=== PATIENT | female | born 1990 | race Caucasian/White ===

== ENCOUNTER 2018-11-05 12:50 | Emergency (ER) | payer OTHER ==
[~2018-11-05] VITALS: Ht 162.6 cm; Wt 90.0 kg
[~2018-11-05 12:50] MED LIST: BIRTH CONTROL TAB; CIPRO500 MG OR; FLEXERIL OR; LORTAB 5 OR; NAPROXEN500 MG OR; PRENATAL1 TA1 PO; PYRIDIUM200 MG OR; ULTRAM50 M1 OR
[2018-11-05] MEDS ORDERED: OMEPRAZOLE10 MG PO (13:11)
[2018-11-05 14:17] LABS: HEMOGLOBIN 13.5 g/dl (12.0-16.0); IMMATURE GRANULOCYTES 0.3 % (0.0-5.0); MEAN CELL VOLUME 94.2 fL CALC (80.0-100.0); MEAN CORPUSCULAR HGB 31.4 pG CALC (26.0-32.0); MEAN CORPUSCULAR HGB CONC 33.3 g/L CALC (32.0-36.0); NEUT# 12.31 thou/uL (2.00-7.15); RED BLOOD COUNT 4.3 mill/uL (4.20-5.60); RED CELL DISTRI WIDTH 11.9 % (11.5-15.5)
[2018-11-05 14:20] LABS: HEMATOCRIT 40.5 % (37.0-47.0)
[2018-11-05 14:21] LABS: URINE BILIRUBIN - DIPSTICK NEGATIVE (NEGATIVE); URINE BLOOD DIPSTICK NEGATIVE (NEGATIVE); URINE COLOR YELLOW; URINE GLUCOSE - DIPSTICK NEGATIVE (NEGATIVE); URINE KETONE NEGATIVE (NEGATIVE); URINE LEUK ESTERASE TRACE (NEGATIVE); URINE NITRITE - DIPSTICK NEGATIVE (Negative); URINE PROTEIN - DIPSTICK NEGATIVE (NEG-TRACE); URINE SPECIFIC GRAVITY 1.025; URINE UROBILINOGEN - DIPSTICK 0.2 E.U./dL (0.2)
[2018-11-05 14:30] LABS: ANION GAP 14 (6-22 (CALC)); BILIRUBIN, TOTAL 0.9 mg/dL (0.0-1.4); BUN 8 mg/dL (7-17); BUN/CREATININE RATIO 16 (12-20 (CALC)); CARBON DIOXIDE 25 mmol/l (22-30); CHLORIDE 104 mmol/l (95-108); CREATININE 0.5 mg/dL (0.5-1.0); GFR > 60 ML/MIN (>=60 (CALC)); GFR FOR AFR.AMER. > 60 ML/MIN (>=60 (CALC)); LIPASE 71 u/l (23-300); POTASSIUM 4.5 mmol/l (3.5-5.1); SGOT/AST 25 u/l (14-36); SODIUM 138 mmol/l (137-146); TOTAL PROTEIN 6.9 g/dL (6.3-8.2)
[2018-11-05 14:33] LABS: ALBUMIN 4.2 g/dL (3.2-5.0); ALKALINE PHOSPHATASE 75 u/l (38-126)
[2018-11-05] MEDS ORDERED: EPIPEN 2-P0.3 MG/0.3 IM (19:17)
[2018-11-05] MEDS ORDERED: PREDNISONE50 MG PO (19:17)
[2018-11-05] MEDS ORDERED: ULTRAM50 M1 PO (20:10)
[2018-11-05 20:45] VITALS: BP 117/73
== END 2018-11-05 20:45 | disposition home or self-care (01) | DRG 392 ==
LOC: ED 12:50
PROVIDERS: Family Medicine
DX: R10.84 Generalized abdominal pain (principal); M79.10 Myalgia, unspecified site; K21.9 Gastro-esophageal reflux disease without esophagitis; L50.0 Allergic urticaria; D72.829 Elevated white blood cell count, unspecified; T50.905A Adverse effect of unspecified drugs, medicaments and biological substances, initial encounter
CPT/HCPCS: Q9967

== ENCOUNTER 2021-05-25 14:06 | Emergency (ER) | payer OTHER ==
[~2021-05-25] VITALS: Ht 162.6 cm; Wt 90.0 kg
[~2021-05-25 14:06] MED LIST changes: +EPIPEN 2-P0.3 MG/0.3 IM; +OMEPRAZOLE10 MG PO; +PREDNISONE50 MG PO; +ULTRAM50 M1 PO
[2021-05-25] MEDS ORDERED: HYDROCO/APAP1 T10 PO (16:05)
[2021-05-25] MEDS ORDERED: ZOFRAN4 MG/TAB PO (16:06)
[2021-05-25] MEDS ORDERED: ONDANSETRON4 MG PO (16:15)
[2021-05-25 16:25] VITALS: BP 112/79
== END 2021-05-25 16:25 | disposition home or self-care (01) | DRG 948 ==
LOC: ED 14:06
DX: G89.18 Other acute postprocedural pain (principal); K21.9 Gastro-esophageal reflux disease without esophagitis; Z98.890 Other specified postprocedural states

== ENCOUNTER 2022-01-02 18:27 | Emergency (ER) | payer OTHER ==
[~2022-01-02] VITALS: Ht 162.6 cm; Wt 90.6 kg
[~2022-01-02 18:27] MED LIST changes: +HYDROCO/APAP1 T10 PO; +ONDANSETRON4 MG PO; +ZOFRAN4 MG/TAB PO
[2022-01-02 19:44] VITALS: BP 116/77
[2022-01-02 20:06] LABS: HEMATOCRIT 42.1 % (37.0-47.0); HEMOGLOBIN 13.7 g/dl (12.0-16.0); IMMATURE GRANULOCYTES 0.2 % (0.0-5.0); MEAN CELL VOLUME 95.9 fL CALC (80.0-100.0); MEAN CORPUSCULAR HGB 31.2 pG CALC (26.0-32.0); MEAN CORPUSCULAR HGB CONC 32.5 g/dL CAL (32.0-36.0); NEUT# 9.77 thou/uL (2.00-7.15); RED BLOOD COUNT 4.39 mill/uL (4.20-5.60); RED CELL DISTRI WIDTH 11.6 % (11.5-15.5)
[2022-01-02 20:28] LABS: ALBUMIN 4.1 g/dL (3.2-5.0); ALKALINE PHOSPHATASE 78 u/l (38-126); AMYLASE 61 u/l (30-110); ANION GAP 11 (6-22 (CALC)); BUN 13 mg/dL (7-17); BUN/CREATININE RATIO 17 (12-20 (CALC)); CARBON DIOXIDE 28 mmol/l (22-30); CHLORIDE 101 mmol/l (95-108); CREATININE 0.8 mg/dL (0.5-1.0); GFR > 60 ML/MIN (>=60 (CALC)); GFR FOR AFR.AMER. > 60 ML/MIN (>=60 (CALC)); LIPASE 115 u/l (23-300); POTASSIUM 4.7 mmol/l (3.5-5.1); SGOT/AST 16 u/l (14-36); SODIUM 136 mmol/l (137-146)
[2022-01-02 20:30] LABS: BILIRUBIN, TOTAL 0.3 mg/dL (0.0-1.4)
[2022-01-02 20:39] LABS: MYOGLOBIN 19 ng/mL (0 - 62)
[2022-01-02 20:50] LABS: ACT PARTIAL THROMBO TIME 25.4 SECONDS (20.0-32.5); INTERNATIONAL NORMALIZED RATIO 0.9 RATIO (0.7-1.3); PROTHROMBIN TIME 9.4 SECONDS (9.0-12.5)
[2022-01-02 20:55] LABS: D-DIMER 0.17 mg/L (0.19-0.60)
[2022-01-02 21:44] LABS: URINE BILIRUBIN - DIPSTICK NEGATIVE (NEGATIVE); URINE BLOOD DIPSTICK NEGATIVE (NEGATIVE); URINE COLOR YELLOW; URINE GLUCOSE - DIPSTICK NEGATIVE (NEGATIVE); URINE KETONE NEGATIVE (NEGATIVE); URINE LEUK ESTERASE TRACE (NEGATIVE); URINE PROTEIN - DIPSTICK NEGATIVE (NEG-TRACE); URINE SPECIFIC GRAVITY 1.015; URINE UROBILINOGEN - DIPSTICK 0.2 E.U./dL (0.2)
[2022-01-02 21:45] LABS: URINE NITRITE - DIPSTICK NEGATIVE (Negative)
[2022-01-02 22:11] VITALS: BP 116/77
== END 2022-01-02 22:11 | disposition home or self-care (01) | DRG 313 ==
LOC: ED 18:27
PROVIDERS: Family Medicine
DX: R07.9 Chest pain, unspecified (principal); G25.71 Drug induced akathisia; T43.3X5A Adverse effect of phenothiazine antipsychotics and neuroleptics, initial encounter; K21.9 Gastro-esophageal reflux disease without esophagitis; Z20.822 Contact with and (suspected) exposure to COVID-19

== ENCOUNTER 2022-05-24 09:31 | Emergency (ER) | payer OTHER ==
[2022-05-24] VITALS (13 sets, daily range): BP systolic 86–131; BP diastolic 46–85
[~2022-05-24] VITALS: Ht 162.6 cm; Wt 90.9 kg
[2022-05-24 10:21] LABS: URINE BILIRUBIN - DIPSTICK NEGATIVE (NEGATIVE); URINE BLOOD DIPSTICK NEGATIVE (NEGATIVE); URINE COLOR YELLOW; URINE GLUCOSE - DIPSTICK NEGATIVE (NEGATIVE); URINE KETONE NEGATIVE (NEGATIVE); URINE LEUK ESTERASE NEGATIVE (NEGATIVE); URINE PROTEIN - DIPSTICK NEGATIVE (NEG-TRACE); URINE SPECIFIC GRAVITY >=1.030; URINE UROBILINOGEN - DIPSTICK 0.2 E.U./dL (0.2)
[2022-05-24 10:23] LABS: HEMATOCRIT 40.8 % (37.0-47.0); HEMOGLOBIN 13.6 g/dl (12.0-16.0); IMMATURE GRANULOCYTES 0.2 % (0.0-5.0); MEAN CELL VOLUME 93.4 fL CALC (80.0-100.0); MEAN CORPUSCULAR HGB 31.1 pG CALC (26.0-32.0); MEAN CORPUSCULAR HGB CONC 33.3 g/dL CAL (32.0-36.0); NEUT# 12.91 thou/uL (2.00-7.15); RED BLOOD COUNT 4.37 mill/uL (4.20-5.60); RED CELL DISTRI WIDTH 11.3 % (11.5-15.5)
[2022-05-24 10:30] LABS: URINE NITRITE - DIPSTICK NEGATIVE (Negative)
[2022-05-24 10:47] LABS: ALBUMIN 4.1 g/dL (3.2-5.0); ALKALINE PHOSPHATASE 74 u/l (38-126); ANION GAP 10 (6-22 (CALC)); BUN 11 mg/dL (7-17); BUN/CREATININE RATIO 18 (12-20 (CALC)); CARBON DIOXIDE 28 mmol/l (22-30); CHLORIDE 104 mmol/l (95-108); CREATININE 0.6 mg/dL (0.5-1.0); GFR FOR AFR.AMER. > 60 ML/MIN (>=60 (CALC)); GFR OTHER RACES > 60 ML/MIN (>=60 (CALC)); LIPASE 72 u/l (23-300); POTASSIUM 4.4 mmol/l (3.5-5.1); SGOT/AST 25 u/l (14-36); SODIUM 137 mmol/l (137-146); TOTAL PROTEIN 7.4 g/dL (6.3-8.2)
[2022-05-24 10:50] LABS: BILIRUBIN, TOTAL 0.5 mg/dL (0.0-1.4)
[2022-05-24] MEDS ORDERED: DICYCLOMINE HCL20 MG PO (12:27)
[2022-05-26] MEDS ORDERED: AMOX/K CLAV875 M1 PO (16:34)
== END 2022-05-24 13:00 | disposition home or self-care (01) | DRG 392 ==
LOC: ED 09:31
PROVIDERS: Internal Medicine
DX: R10.9 Unspecified abdominal pain (principal); R11.0 Nausea